=== PATIENT | male | born 1950 | race Caucasian/White ===

== ENCOUNTER → 2017-11-26 | Day surgery (SDC) | payer MEDICARE ==
[2017-11-23 15:05] VITALS: BMI 27.6
[~2017-11-26] MED LIST: LACTATED RINGERS 1,000 ML IV SCH; LIDOCAINE 1% 20 ML VIAL (10MG/ML) FOR IV START INTRADERMA ONE; PROPOFOL 10 MG/ML 20 ML VIAL IV ONE
[2017-11-26 09:25] VITALS: RESP 16; TEMP 98.6
--- NOTE | 2017-11-26 10:35 | P.GSHP ---
History of Present Illness H&P Date: 11/26/17 Chief Complaint: Colonoscopy This is a 67-year-old male who presents today for colonoscopy. Patient has history of colon polyps. His last colonoscopy was over 10 years ago. Past Medical History Past Medical History: CVA/TIA, Hyperlipidemia Additional Past Medical History / Comment(s): TIA "years ago", hx tachycardia, History of Any Multi-Drug Resistant Organisms: None Reported Past Surgical History: Appendectomy, Cardiac Ablation Past Anesthesia/Blood Transfusion Reactions: No Reported Reaction Smoking Status: Never smoker - Past Family History Mother Family Medical History: No Reported History Medications and Allergies Home Medications Medication Instructions Recorded Confirmed Type Aspirin EC [Ecotrin] 325 mg PO DAILY 11/23/17 11/26/17 History Cholecalciferol [Vitamin D3] 2,000 unit PO DAILY 11/23/17 11/26/17 History Hydrochlorothiazide [Hydrodiuril] 25 mg PO DAILY 11/23/17 11/26/17 History Lisinopril [Zestril] 20 mg PO DAILY 11/23/17 11/26/17 History Simvastatin [Zocor] 20 mg PO HS 11/23/17 11/26/17 History Allergies Allergy/AdvReac Type Severity Reaction Status Date / Time meperidine [From Demerol] Allergy dizzy,swell Verified 11/26/17 09:08 ing shellfish derived [Shellfish] Allergy Swelling Verified 11/26/17 09:08 iodine Allergy Unknown Uncoded 11/26/17 09:08 Surgical - Exam Vital Signs Temp Pulse Resp BP Pulse Ox 98.6 F 80 16 169/90 97 11/26/17 09:20 11/26/17 09:20 11/26/17 09:20 11/26/17 09:20 11/26/17 09:20 - General well developed, no distress - Eyes PERRL - ENT normal pinna - Neck no masses - Respiratory normal expansion - Cardiovascular Rhythm: regular - Abdomen Abdomen: soft, non tender Assessment and Plan Assessment: History: Polyps. We'll perform screening colonoscopy.
[2017-11-26 11:07] VITALS: BP 166/96; PULSE 64
--- NOTE | 2017-11-26 15:01 | P.OP ---
Date of Procedure: 11/26/17 Preoperative Diagnosis: History of colon polyps Postoperative Diagnosis: Normal colon Procedure(s) Performed: Colonoscopy Anesthesia: NATHANIEL Surgeon: Danilo Landry Pathology: none sent Condition: stable Disposition: PACU Description of Procedure: PROCEDURE: The patient was placed on the endoscopy table in the lateral position. Digital rectal examination was performed which revealed no abnormalities. The prostate was symmetrical without nodules. Flexible colonoscope was then placed in the patient's anus and passed throughout the entire colon. The ileocecal valve was visualized. The cecum, ascending, transverse, descending and sigmoid colon were normal. The rectum was normal as well. There were no masses, polyps or diverticula noted in the entire colon. SUMMARY OF FINDINGS: Normal colonoscopy.
== END | disposition home or self-care (01) ==
LOC: ORWHC2ENDO 08:06
PROVIDERS: ATTEND Surgery
DX: Z12.11 Encounter for screening for malignant neoplasm of colon (principal); E78.5 Hyperlipidemia, unspecified; Z86.010 Personal history of colon polyps; Z79.82 Long term (current) use of aspirin; Z86.73 Personal history of transient ischemic attack (TIA), and cerebral infarction without residual deficits; Z79.899 Other long term (current) drug therapy; Z88.5 Allergy status to narcotic agent; Z91.013 Allergy to seafood; Z91.048 Other nonmedicinal substance allergy status; I10 Essential (primary) hypertension
CPT/HCPCS: J2704; G0105

== ENCOUNTER 2018-01-21 21:54 | Emergency (ER) | payer MEDICARE ==
[2018-01-21 22:00] VITALS: TEMP 97.8
[2018-01-21] MEDS ORDERED: SODIUM CHLORIDE 0.9% 500 ML 500 ML IV STA (22:06)
--- NOTE | 2018-01-21 22:11 | ED ---
General Adult HPI - General Chief complaint: Shortness of Breath Stated complaint: Chest Pain/SOB Source: patient Mode of arrival: EMS Limitations: no limitations - History of Present Illness Initial comments: Dictation was produced using [employer] dictation software. please excuse any grammatical, word or spelling errors. Chief Complaint: 67-year-old male past medical history of CVA, dyslipidemia, arrhythmia status post ablation presents with palpitations. History of Present Illness: Patient is 67-year-old male with multiple comorbidities presents with palpitations. Patient states he was getting ready for bed when he had 2 episodes of palpitations. Patient states he attempted to stand up from the symptoms. Denies any passing out or falling. Patient denies having any history of this the past. He had cardiac ablation several years ago that was performed by one of our local service station manager. Patient feeling asymptomatic at this time. He did report having 5 beers today. The ROS documented in this emergency department record has been reviewed and confirmed by me. Those systems with pertinent positive or negative responses have been documented in the HPI. All other systems are other negative and/or noncontributory. - Related Data Home Medications Medication Instructions Recorded Confirmed Aspirin EC [Ecotrin] 325 mg PO DAILY 11/23/17 01/21/18 Cholecalciferol [Vitamin D3] 2,000 unit PO DAILY 11/23/17 01/21/18 Hydrochlorothiazide [Hydrodiuril] 25 mg PO DAILY 11/23/17 01/21/18 Lisinopril [Zestril] 20 mg PO DAILY 11/23/17 01/21/18 Simvastatin [Zocor] 20 mg PO HS 11/23/17 01/21/18 Allergies Allergy/AdvReac Type Severity Reaction Status Date / Time meperidine [From Demerol] Allergy dizzy,swell Verified 01/21/18 22:16 ing shellfish derived [Shellfish] Allergy Swelling Verified 01/21/18 22:16 iodine Allergy Swelling Uncoded 01/21/18 22:16 Review of Systems ROS Statement: Those systems with pertinent positive or pertinent negative responses have been documented in the HPI. ROS Other: All systems not noted in ROS Statement are negative. Past Medical History Past Medical History: CVA/TIA, Hyperlipidemia Additional Past Medical History / Comment(s): TIA "years ago", hx tachycardia, History of Any Multi-Drug Resistant Organisms: None Reported Past Surgical History: Appendectomy, Cardiac Ablation Past Anesthesia/Blood Transfusion Reactions: No Reported Reaction Past Psychological History: No Psychological Hx Reported Smoking Status: Never smoker Past Alcohol Use History: Occasional Past Drug Use History: None Reported - Past Family History Mother Family Medical History: No Reported History General Exam - General Exam Comments Initial Comments: PHYSICAL EXAM: General Impression: Alert and oriented x3, not in acute distress, smells of [place] HEENT: Normocephalic atraumatic, extra-ocular movements intact, pupils equal and reactive to light bilaterally, mucous membranes moist. Cardiovascular: irregular Chest: Lungs clear to auscultation bilaterally, no rhonchi, no wheeze, no rales Abdomen: Bowel sounds present, abdomen soft, non-tender, non-distended, no organomegaly Musculoskeletal: Pulses present and equal in all extremities, no peripheral edema Motor: Power 5/5 bilaterally, no focal deficits noted Neurological: CN II-XII grossly intact, no focal motor or sensory deficits noted Skin: Intact with no visualized rashes Psych: Normal affect and mood Limitations: no limitations Course Vital Signs 01/21/18 01/21/18 21:55 22:00 Temperature 97.8 F Pulse Rate 78 Respiratory 18 18 Rate Blood Pressure 140/96 O2 Sat by Pulse 98 Oximetry Medical Decision Making - Medical Decision Making ED course: 67-year-old male with chief complaint of palpitations. Vital signs upon arrival are within acceptable limits.Laboratory evaluation obtained. CBC, coag panel, metabolic panel is unremarkable. Serum alcohol is 90. Patient was on the aircraft cleaner without any events noted. Patient feeling asymptomatic at this time. He does have good outpatient follow-up with cardiology. He does have an echocardiogram scheduled with his service station manager. Patient has any congestive heart failure. Patient is motivated to be discharge. Discussed patient that if he has repeat episode, or syncope to come back to the emergency department. Patient is understandable and agreeable to this plan. Patient told that possible that he did have a ventricular dysrhythmia however more likely that patient was having occasional PVCs. EKG Interpretation: A 12 lead EKG was obtained. It was interpreted by myself and attending physician. There is a P wave before every QRS complex. Rate is 71. Rhythm is sinus rhythm with PVCs, OK interval 200, QS 90, QTC 417. QT is not prolonged. No ST segment depression or elevation. Overall, this EKG is unremarkable - Lab Data Result diagrams: 01/21/18 22:03 01/21/18 22:03 Lab Results 01/21/18 01/21/18 01/21/18 Range/Units 22:03 22:03 22:03 WBC 7.7 (3.8-10.6) k/uL RBC 4.23 L (4.30-5.90) m/uL Hgb 14.2 (13.0-17.5) gm/dL Hct 40.1 (39.0-53.0) % MCV 94.9 (80.0-100.0) fL MCH 33.5 (25.0-35.0) pg MCHC 35.3 (31.0-37.0) g/dL RDW 12.1 (11.5-15.5) % Plt Count 249 (150-450) k/uL Neutrophils % 39 % Lymphocytes % 48 % Monocytes % 6 % Eosinophils % 3 % Basophils % 1 % Neutrophils # 3.0 (1.3-7.7) k/uL Lymphocytes # 3.7 (1.0-4.8) k/uL Monocytes # 0.5 (0-1.0) k/uL Eosinophils # 0.2 (0-0.7) k/uL Basophils # 0.1 (0-0.2) k/uL PT (9.0-12.0) sec INR (<1.2) APTT (22.0-30.0) sec Sodium 135 L (137-145) mmol/L Potassium 3.8 (3.5-5.1) mmol/L Chloride 104 (98-107) mmol/L Carbon Dioxide 20 L (22-30) mmol/L Anion Gap 11 mmol/L BUN 11 (9-20) mg/dL Creatinine 0.83 (0.66-1.25) mg/dL Est GFR (CKD-EPI)AfAm >90 (>60 ml/min/1.73 sqM) Est GFR (CKD-EPI)NonAf >90 (>60 ml/min/1.73 sqM) Glucose 97 (74-99) mg/dL Calcium 9.3 (8.4-10.2) mg/dL Magnesium 2.0 (1.6-2.3) mg/dL Total Bilirubin 0.6 (0.2-1.3) mg/dL AST 36 (17-59) U/L ALT 38 (21-72) U/L Alkaline Phosphatase 79 (38-126) U/L Total Creatine Kinase 130 (55-170) U/L CK-MB (CK-2) 1.8 (0.0-2.4) ng/mL CK-MB (CK-2) Rel Index 1.4 Troponin I <0.012 (0.000-0.034) ng/mL Total Protein 6.9 (6.3-8.2) g/dL Albumin 4.1 (3.5-5.0) g/dL Serum Alcohol 90 mg/dL 01/21/18 Range/Units 22:03 WBC (3.8-10.6) k/uL RBC (4.30-5.90) m/uL Hgb (13.0-17.5) gm/dL Hct (39.0-53.0) % MCV (80.0-100.0) fL MCH (25.0-35.0) pg MCHC (31.0-37.0) g/dL RDW (11.5-15.5) % Plt Count (150-450) k/uL Neutrophils % % Lymphocytes % % Monocytes % % Eosinophils % % Basophils % % Neutrophils # (1.3-7.7) k/uL Lymphocytes # (1.0-4.8) k/uL Monocytes # (0-1.0) k/uL Eosinophils # (0-0.7) k/uL Basophils # (0-0.2) k/uL PT 10.9 (9.0-12.0) sec INR 1.1 (<1.2) APTT 24.6 (22.0-30.0) sec Sodium (137-145) mmol/L Potassium (3.5-5.1) mmol/L Chloride (98-107) mmol/L Carbon Dioxide (22-30) mmol/L Anion Gap mmol/L BUN (9-20) mg/dL Creatinine (0.66-1.25) mg/dL Est GFR (CKD-EPI)AfAm (>60 ml/min/1.73 sqM) Est GFR (CKD-EPI)NonAf (>60 ml/min/1.73 sqM) Glucose (74-99) mg/dL Calcium (8.4-10.2) mg/dL Magnesium (1.6-2.3) mg/dL Total Bilirubin (0.2-1.3) mg/dL AST (17-59) U/L ALT (21-72) U/L Alkaline Phosphatase (38-126) U/L Total Creatine Kinase (55-170) U/L CK-MB (CK-2) (0.0-2.4) ng/mL CK-MB (CK-2) Rel Index Troponin I (0.000-0.034) ng/mL Total Protein (6.3-8.2) g/dL Albumin (3.5-5.0) g/dL Serum Alcohol mg/dL Disposition Clinical Impression: Heart palpitations Disposition: HOME SELF-CARE Instructions: Heart Palpitations (DC) Is patient prescribed a controlled substance at d/c from ED?: No Referrals: Todd Figueroa MD [Primary Care Provider] - 1-2 days Maggy Dial MD [STAFF PHYSICIAN] - 1-2 days Time of Disposition: 23:04
[2018-01-21 22:17] LABS: Basophils # (A) 0.1 k/uL (0-0.2); Basophils % (A) 1 %; Eosinophils # (A) 0.2 k/uL (0-0.7); Eosinophils % (A) 3 %; HCT 40.1 % (39.0-53.0); HGB 14.2 gm/dL (13.0-17.5); Lymphocytes # (A) 3.7 k/uL (1.0-4.8); Lymphocytes % (A) 48 %; MCH 33.5 pg (25.0-35.0); MCHC 35.3 g/dL (31.0-37.0); MCV 94.9 fL (80.0-100.0); Monocytes # (A) 0.5 k/uL (0-1.0); Monocytes % (A) 6 %; Neutrophils % (A) 39 %; Platelet Count 249 k/uL (150-450); RBC 4.23 m/uL (4.30-5.90); RDW 12.1 % (11.5-15.5); WBC 7.7 k/uL (3.8-10.6)
[2018-01-21 22:25] LABS: INR 1.1 (<1.2); Partial Thromboplastin Time 24.6 sec (22.0-30.0); Prothrombin Time 10.9 sec (9.0-12.0)
[2018-01-21 22:36] LABS: ALT 38 U/L (21-72); AST 36 U/L (17-59); Albumin 4.1 g/dL (3.5-5.0); Alkaline Phosphatase 79 U/L (38-126); Anion Gap 11 mmol/L; Blood Urea Nitrogen 11 mg/dL (9-20); Calcium 9.3 mg/dL (8.4-10.2); Carbon Dioxide 20 mmol/L (22-30); Chloride 104 mmol/L (98-107); Glucose 97 mg/dL (74-99); Potassium 3.8 mmol/L (3.5-5.1); Sodium 135 mmol/L (137-145); Total Bilirubin 0.6 mg/dL (0.2-1.3); Total Protein 6.9 g/dL (6.3-8.2)
[2018-01-21 22:41] LABS: Alcohol 90 mg/dL
[2018-01-21 22:46] LABS: Creatine Kinase 130 U/L (55-170)
--- NOTE | 2018-01-21 22:52 | XR ---
EXAMINATION TYPE: XR chest 2V DATE OF EXAM: 01/21/2018 COMPARISON: NONE HISTORY: Short of breath TECHNIQUE: Frontal and lateral views of the chest are obtained. FINDINGS: There is no heart failure nor confluent pneumonic infiltrate. Costophrenic angles are alecia r. There are chest leads. There is spurring in the thoracic spine. Bony thorax is intact. IMPRESSION: No active cardiopulmonary disease. Normal heart.
[2018-01-21 22:59] LABS: Creatine Kinase MB 1.8 ng/mL (0.0-2.4); Troponin I <0.012 ng/mL (0.000-0.034)
[2018-01-21 23:26] VITALS: BP 143/95; PULSE 60; RESP 16
== END 2018-01-21 23:27 | disposition home or self-care (01) ==
LOC: EC 21:54
DX: R00.2 Palpitations (principal); R06.02 Shortness of breath; R07.9 Chest pain, unspecified; E78.5 Hyperlipidemia, unspecified; Z79.82 Long term (current) use of aspirin; Z79.899 Other long term (current) drug therapy; Z86.73 Personal history of transient ischemic attack (TIA), and cerebral infarction without residual deficits; Z98.890 Other specified postprocedural states; Z88.5 Allergy status to narcotic agent; Z91.013 Allergy to seafood; Z91.048 Other nonmedicinal substance allergy status
CPT/HCPCS: 36415; 93005; 80053; 82550; 82553; 83735; 84443; 84484; 85025; 85610; 85730; 71046; 99285; G0480; 80320

== ENCOUNTER 2019-03-30 22:07 | Emergency (ER) | payer MEDICARE ==
[2019-03-30 22:17] VITALS: RESP 20; TEMP 97.4
--- NOTE | 2019-03-30 23:04 | ED ---
General Adult HPI - General Chief complaint: Shortness of Breath Stated complaint: Chest pain Time Seen by Provider: 03/30/19 22:12 Source: patient, EMS Mode of arrival: EMS Limitations: no limitations - History of Present Illness Initial comments: Dictation was produced using [email or web address] dictation software. please excuse any grammatical, word or spelling errors. Chief Complaint: 68-year-old male presents with chest pain in episode of shor tness of breath. History of Present Illness: 68-year-old male states that he was in bed today when he be had an acute episode of respiratory distress. He also reports he had some strange chest pain radiating to the left neck. Urinalysis complains of throat pain. Patient states his symptoms began while getting ready for bed. He states symptoms began acutely. States that he had trouble breathing. [place] slightly anxious at that time decided to put on some regular clothes for feelings of reassurance. Patient states that he did feel sensation of his throat closing. Since pain emergency Department states that his symptoms are better. Whenever he talks his symptoms are worse. The ROS documented in this emergency department record has been reviewed and confirmed by me. Those systems with pertinent positive or negative responses have been documented in the HPI. All other systems are other negative and/or noncontributory. PHYSICAL EXAM: General Impression: Alert and oriented x3, not in acute distress HEENT: Normocephalic atraumatic, extra-ocular movements intact, pupils equal and reactive to light bilaterally, mucous membranes moist. Cardiovascular: Heart regular rate and rhythm, S1&S2 audible, no murmurs, rubs or gallops Chest: Lungs clear to auscultation bilaterally, no rhonchi, no wheeze, no rales Abdomen: Bowel sounds present, abdomen soft, non-tender, non-distended, no organomegaly Musculoskeletal: Pulses present and equal in all extremities, no peripheral edema Motor: no focal deficits noted Neurological: CN II-XII grossly intact, no focal motor or sensory deficits noted Skin: Intact with no visualized rashes Psych: Normal affect and mood ED course: 68-year-old male presents with chief complaint of acute respiratory distress. He did feel like his though his throat was hurting. Signs upon arrival are within acceptable limits. Patient not showing any signs of respiratory distress. Is not drooling. He is well-appearing comfortable at this time.Laboratory evaluation obtained. CBC, coag panel, metabolic panel is unremarkable. Group A strep is negative. Chest x-ray and soft tissue neck x- rays negative. The emergency department for couple hours with no symptoms. He is well-appearing. Discussed results with patient. Patient reports that he's b een more stressed out recently due to the of her daughter and him and his raising young children. Patient is advised to follow-up with primary care physician. There likely is a component of anxiety. Return parameters discussed. Patient clear for discharge. All questions answered. EKG interpretation: Ventricular rate every 72, sinus rhythm,. Interval to 18, care is 102, QTc 433. No [place] prolongation, no QTC prolongation, no ST or T-wave changes noted. EKG compared to her second 2017 showing no changes. Overall, this EKG is unremarkable - Related Data Home Medications Medication Instructions Recorded Confirmed Aspirin EC [Ecotrin] 325 mg PO DAILY 11/23/17 01/21/18 Cholecalciferol [Vitamin D3] 2,000 unit PO DAILY 11/23/17 01/21/18 Hydrochlorothiazide [Hydrodiuril] 25 mg PO DAILY 11/23/17 01/21/18 Lisinopril [Zestril] 20 mg PO DAILY 11/23/17 01/21/18 Simvastatin [Zocor] 20 mg PO HS 11/23/17 01/21/18 Allergies Allergy/AdvReac Type Severity Reaction Status Date / Time meperidine [From Demerol] Allergy dizzy,swell Verified 01/21/18 22:16 ing shellfish derived [Shellfish] Allergy Swelling Verified 01/21/18 22:16 iodine Allergy Swelling Uncoded 01/21/18 22:16 Review of Systems ROS Statement: Those systems with pertinent positive or pertinent negative responses have been documented in the HPI. ROS Other: All systems not noted in ROS Statement are negative. Past Medical History Past Medical History: CVA/TIA, Hyperlipidemia Additional Past Medical History / Comment(s): TIA "years ago", hx tachycardia, History of Any Multi-Drug Resistant Organisms: None Reported Past Surgical History: Appendectomy, Cardiac Ablation Past Anesthesia/Blood Transfusion Reactions: No Reported Reaction Past Psychological History: No Psychological Hx Reported Smoking Status: Never smoker Past Alcohol Use History: Occasional Past Drug Use History: None Reported - Past Family History Mother Family Medical History: No Reported History General Exam Limitations: no limitations Course Vital Signs 03/30/19 03/30/19 03/30/19 22:08 22:48 23:07 Temperature 97.4 F L Pulse Rate 75 65 Respiratory 20 20 20 Rate Blood Pressure 154/117 141/89 O2 Sat by Pulse 97 97 Oximetry 03/30/19 23:19 Temperature Pulse Rate 70 Respiratory 20 Rate Blood Pressure 140/97 O2 Sat by Pulse 97 Oximetry Medical Decision Making - Lab Data Result diagrams: 03/30/19 22:11 03/30/19 22:11 Lab Results 03/30/19 03/30/19 03/30/19 Range/Units 22:11 22:11 22:11 WBC 8.4 (3.8-10.6) k/uL RBC 4.50 (4.30-5.90) m/uL Hgb 14.8 (13.0-17.5) gm/dL Hct 42.5 (39.0-53.0) % MCV 94.3 (80.0-100.0) fL MCH 32.9 (25.0-35.0) pg MCHC 34.9 (31.0-37.0) g/dL RDW 11.3 L (11.5-15.5) % Plt Count 237 (150-450) k/uL Neutrophils % 39 % Lymphocytes % 48 % Monocytes % 6 % Eosinophils % 2 % Basophils % 1 % Neutrophils # 3.3 (1.3-7.7) k/uL Lymphocytes # 4.0 (1.0-4.8) k/uL Monocytes # 0.5 (0-1.0) k/uL Eosinophils # 0.2 (0-0.7) k/uL Basophils # 0.1 (0-0.2) k/uL PT 11.0 (9.0-12.0) sec INR 1.0 (<1.2) APTT 26.8 (22.0-30.0) sec Sodium 134 L (137-145) mmol/L Potassium 4.0 (3.5-5.1) mmol/L Chloride 100 (98-107) mmol/L Carbon Dioxide 21 L (22-30) mmol/L Anion Gap 13 mmol/L BUN 12 (9-20) mg/dL Creatinine 0.79 (0.66-1.25) mg/dL Est GFR (CKD-EPI)AfAm >90 (>60 ml/min/1.73 sqM) Est GFR (CKD-EPI)NonAf >90 (>60 ml/min/1.73 sqM) Glucose 93 (74-99) mg/dL Calcium 9.1 (8.4-10.2) mg/dL Magnesium 2.0 (1.6-2.3) mg/dL Total Bilirubin 0.6 (0.2-1.3) mg/dL AST 43 (17-59) U/L ALT 32 (4-49) U/L Alkaline Phosphatase 87 (38-126) U/L Troponin I (0.000-0.034) ng/mL Total Protein 7.4 (6.3-8.2) g/dL Albumin 4.3 (3.5-5.0) g/dL Group A Strep Rapid (Negative) 03/30/19 03/30/19 Range/Units 22:11 23:16 WBC (3.8-10.6) k/uL RBC (4.30-5.90) m/uL Hgb (13.0-17.5) gm/dL Hct (39.0-53.0) % MCV (80.0-100.0) fL MCH (25.0-35.0) pg MCHC (31.0-37.0) g/dL RDW (11.5-15.5) % Plt Count (150-450) k/uL Neutrophils % % Lymphocytes % % Monocytes % % Eosinophils % % Basophils % % Neutrophils # (1.3-7.7) k/uL Lymphocytes # (1.0-4.8) k/uL Monocytes # (0-1.0) k/uL Eosinophils # (0-0.7) k/uL Basophils # (0-0.2) k/uL PT (9.0-12.0) sec INR (<1.2) APTT (22.0-30.0) sec Sodium (137-145) mmol/L Potassium (3.5-5.1) mmol/L Chloride (98-107) mmol/L Carbon Dioxide (22-30) mmol/L Anion Gap mmol/L BUN (9-20) mg/dL Creatinine (0.66-1.25) mg/dL Est GFR (CKD-EPI)AfAm (>60 ml/min/1.73 sqM) Est GFR (CKD-EPI)NonAf (>60 ml/min/1.73 sqM) Glucose (74-99) mg/dL Calcium (8.4-10.2) mg/dL Magnesium (1.6-2.3) mg/dL Total Bilirubin (0.2-1.3) mg/dL AST (17-59) U/L ALT (4-49) U/L Alkaline Phosphatase (38-126) U/L Troponin I <0.012 (0.000-0.034) ng/mL Total Protein (6.3-8.2) g/dL Albumin (3.5-5.0) g/dL Group A Strep Rapid Negative (Negative) Disposition Clinical Impression: Dyspnea Disposition: HOME SELF-CARE Condition: Good Instructions (If sedation given, give patient instructions): Pharyngitis (ED) Is patient prescribed a controlled substance at d/c from ED?: No Referrals: Todd Figueroa MD [Primary Care Provider] - 1-2 days Time of Disposition: 00:00
[2019-03-30 23:05] LABS: Basophils # (A) 0.1 k/uL (0-0.2); Basophils % (A) 1 %; Eosinophils # (A) 0.2 k/uL (0-0.7); Eosinophils % (A) 2 %; HCT 42.5 % (39.0-53.0); HGB 14.8 gm/dL (13.0-17.5); Lymphocytes % (A) 48 %; MCH 32.9 pg (25.0-35.0); MCHC 34.9 g/dL (31.0-37.0); MCV 94.3 fL (80.0-100.0); Mean Platelet Volume 7.9; Monocytes # (A) 0.5 k/uL (0-1.0); Monocytes % (A) 6 %; Neutrophils # (A) 3.3 k/uL (1.3-7.7); Neutrophils % (A) 39 %; Platelet Count 237 k/uL (150-450); RDW 11.3 % (11.5-15.5); WBC 8.4 k/uL (3.8-10.6)
[2019-03-30 23:15] LABS: ALT 32 U/L (4-49); AST 43 U/L (17-59); African American GFR (CKD) >90 (>60 ml/min/1.73 sqM); Albumin 4.3 g/dL (3.5-5.0); Alkaline Phosphatase 87 U/L (38-126); Anion Gap 13 mmol/L; Blood Urea Nitrogen 12 mg/dL (9-20); Calcium 9.1 mg/dL (8.4-10.2); Carbon Dioxide 21 mmol/L (22-30); Chloride 100 mmol/L (98-107); Glucose 93 mg/dL (74-99); Non-African American GFR(CKD) >90 (>60 ml/min/1.73 sqM); Sodium 134 mmol/L (137-145); Total Bilirubin 0.6 mg/dL (0.2-1.3); Total Protein 7.4 g/dL (6.3-8.2)
[2019-03-30 23:20] VITALS: BP 140/97; PULSE 70
--- NOTE | 2019-03-30 23:32 | XR ---
EXAMINATION TYPE: XR chest 2V DATE OF EXAM: 03/30/2019 COMPARISON: January 21, 2018 HISTORY: Chest pain TECHNIQUE: FINDINGS: There is no heart failure nor confluent pneumonic infiltrate. Heart size is normal. There a re chest leads. Costophrenic angles are clear. Bony thorax appears intact. IMPRESSION: No active cardiopulmonary disease. Normal heart. No change.
--- NOTE | 2019-03-30 23:33 | XR ---
EXAMINATION TYPE: XR soft tissue neck DATE OF EXAM: 03/30/2019 COMPARISON: NONE HISTORY: Pain TECHNIQUE: 2 views FINDINGS: Epiglottis is normal. Subglottic trachea appears normal. Tonsils and adenoids appear normal . IMPRESSION: Normal cervical soft tissue exam.
[2019-03-30 23:49] LABS: Partial Thromboplastin Time 26.8 sec (22.0-30.0)
== END 2019-03-31 00:32 | disposition home or self-care (01) ==
LOC: EC 22:07
DX: R06.02 Shortness of breath (principal); R06.03 Acute respiratory distress; R07.0 Pain in throat; R07.9 Chest pain, unspecified; M54.2 Cervicalgia; E78.5 Hyperlipidemia, unspecified; Z88.5 Allergy status to narcotic agent; Z91.013 Allergy to seafood; Z91.048 Other nonmedicinal substance allergy status; Z79.82 Long term (current) use of aspirin; Z79.899 Other long term (current) drug therapy; Z63.4 Disappearance and death of family member; Z86.73 Personal history of transient ischemic attack (TIA), and cerebral infarction without residual deficits; Z98.890 Other specified postprocedural states
CPT/HCPCS: 36415; 70360; 71046; 80053; 83735; 84484; 85025; 85610; 85730; 87081; 87430; 93005; 99285

== ENCOUNTER 2022-10-23 23:50 | Emergency (ER) | payer MEDICARE ==
[2022-10-23 23:54] VITALS: RESP 18
[2022-10-24] MEDS ORDERED: LIDOCAINE 1% INJ 10MG/ML (20 ML MDV) SQ ONE (01:38)
[2022-10-24] MEDS ORDERED: DIPH,PERTUS(ACELL)TETVAC-LF 0.5 ML VIAL IM ONE (01:40)
[2022-10-24] MEDS ORDERED: MORPHINE SULFATE 4 MG/ML SYRINGE IVP STA (02:51)
[2022-10-24] MEDS ORDERED: FAMOTIDINE 20 MG/2 ML VIAL IV STA (03:09)
[2022-10-24] MEDS ORDERED: diphenhydrAMINE 50 MG/ML 1 ML VIAL IVP STA (03:10)
[2022-10-24] MEDS ORDERED: methylPREDNISolone SOD SUCCI 125 MG/2 ML VIAL IM ONE (03:10)
[2022-10-24] MEDS ORDERED: methylPREDNISolone SOD SUCCI 125 MG/2 ML VIAL IV STA (03:13)
--- NOTE | 2022-10-24 03:45 | ED ---
Fall HPI - General Chief Complaint: Fall Stated Complaint: Fall Time Seen by Provider: 10/24/22 01:28 Source: patient, EMS, RN notes reviewed Mode of arrival: EMS - History of Present Illness Initial Comments: 72-year-old male with past medical history significant for atrial fibrillation presents the emergency department via EMS with chief complaint of fall. Patient reports that he was walking up the steps when he lost his footing and fell forward. He is complaining of right hand laceration. He is unsure if that he hit his head. Denies loss of consciousness. He does take Xarelto for anticoagulation. Denies any dizziness, lightheadedness, vision changes, vision loss, nausea, vomiting, headache. - Related Data Home Medications Medication Instructions Recorded Confirmed Aspirin EC [Ecotrin] 325 mg PO DAILY 11/23/17 01/21/18 Cholecalciferol [Vitamin D3] 2,000 unit PO DAILY 11/23/17 01/21/18 Simvastatin [Zocor] 20 mg PO HS 11/23/17 01/21/18 hydroCHLOROthiazide [Hydrodiuril] 25 mg PO DAILY 11/23/17 01/21/18 lisinopriL [Zestril] 20 mg PO DAILY 11/23/17 01/21/18 Allergies Allergy/AdvReac Type Severity Reaction Status Date / Time meperidine [From Demerol] Allergy dizzy,swell Verified 01/21/18 22:16 ing shellfish derived [Shellfish] Allergy Swelling Verified 01/21/18 22:16 iodine Allergy Swelling Uncoded 01/21/18 22:16 Review of Systems ROS Statement: Those systems with pertinent positive or pertinent negative responses have been documented in the HPI. ROS Other: All systems not noted in ROS Statement are negative. Past Medical History Past Medical History: CVA/TIA, Hyperlipidemia Additional Past Medical History / Comment(s): TIA "years ago", hx tachycardia, History of Any Multi-Drug Resistant Organisms: None Reported Past Surgical History: Appendectomy, Cardiac Ablation Past Anesthesia/Blood Transfusion Reactions: No Reported Reaction Past Psychological History: No Psychological Hx Reported Smoking Status: Never smoker Past Alcohol Use History: Occasional Past Drug Use History: None Reported - Past Family History Mother Family Medical History: No Reported History General Exam - General Exam Comments Initial Comments: General: Alert, in no acute distress Head: atraumatic normocephalic. Eyes PERRL, EOMI intact, mucous membranes moist Respiratory: Lungs clear to auscultation bilaterally Cardiovascular: Heart rate regular rate and rhythm Abdominal: Soft without guarding or rebound Extremities: Normal inspection with full range of motion and normal capillary refill, right home with 4 cm laceration Neuroogic: alert and oriented 3, CN II-XII intact, able to ambulate with steady gait Skin: warm dry and intact with normal color Course Vital Signs 10/23/22 10/24/22 10/24/22 23:50 02:06 03:02 Temperature 98.3 F Pulse Rate 68 71 73 Respiratory 18 18 18 Rate Blood Pressure 131/87 142/92 133/84 O2 Sat by Pulse 96 95 95 Oximetry 10/24/22 04:46 Temperature 98.2 F Pulse Rate 84 Respiratory 18 Rate Blood Pressure 138/74 O2 Sat by Pulse 99 Oximetry Procedures - Laceration Laceration #1 Indication: laceration Site: other Size (cm): 4 Description: linear Depth: simple, single layer Anesthetic Used: lidocaine 1% Anesthesia Technique: local infiltration Amount (mls): 10 Pre-repair: wound explored, irrigated extensively Type of Sutures: nylon Size of Sutures: 5-0 Number of Sutures: 10 Technique: simple, interrupted Complications: pain, bleeding, nerve injury, allergic reaction Patient Tolerated Procedure: well, no complications Additional Comments: Distal neurovascularly intact status post suture placement Medical Decision Making - Medical Decision Making Was pt. sent in by a medical professional or institution (Dr. PA, ENGINE TURNER, urgent care, hospital, or usp...) When possible be specific @ -[No] Did you speak to anyone other than the patient for history (EMS, parent, family, police, friend...)? What history was obtained from this source @ -EMS, Did you review nursing and triage notes (agree or disagree)? Why? @ -[I reviewed and agree with nursing and triage notes] Were old charts reviewed (outside hosp., previous admission, EMS record, old EKG, old radiological studies, urgent care reports/EKG's, usp records)? Report findings @ -[No old charts were reviewed] Differential Diagnosis (chest pain, altered mental status, abdominal pain women, abdominal pain men, vaginal bleeding, weakness, fever, dyspnea, syncope, headache, dizziness, GI bleed, back pain, seizure, CVA, palpatations, mental health, musculoskeletal)? @ -[not applicable] EKG interpreted by me (3pts min.). @ -[As above] X-rays interpreted by me (1pt min.). @ -[None done] CT interpreted by me (1pt min.). @ -[None done] U/S interpreted by me (1pt. min.). @ -[None done] What testing was considered but not performed or refused? (CT, X-rays, U/S, labs)? Why? @ -[None] What meds were considered but not given or refused? Why? @ -[None] Did you discuss the management of the patient with other professionals (professionals i.e. , PA, ENGINE TURNER, lab, RT, psych nurse, psych social worker, dx board operator, teacher, credit compliance officer, lining caser)? Give summary @ -[No] Was smoking cessation discussed for >3mins.? @ -[No] Was critical care preformed (if so, how long)? @ -[No] Were there social determinants of health that impacted care today? How? (Homelessness, low income, unemployed, alcoholism, drug addiction, transportation, low edu. Level, literacy, decrease access to med. care, penitentiary, rehab)? @ -[No] Was there de-escalation of care discussed even if they declined (Discuss DNR or withdrawal of care, Hospice)? DNR status @ -[No] What co-morbidities impacted this encounter? (DM, HTN, Smoking, COPD, CAD, Cancer, CVA, ARF, Chemo, Hep., AIDS, mental health diagnosis, sleep apnea, morbid obesity)? @ -[None] Was patient admitted / discharged? Hospital course, mention meds given and route, prescriptions, significant lab abnormalities, going to OR and other pertinent info. @ -This is a pleasant 72-year-old male who presents the emergency department with a chief complaint of fall. Patient had a thorough history and physical exam performed on the ED. Patient arrived in a c-collar. There are no focal deficits noted to exam. Patient has 4 cm laceration to right palm with full range of motion. It is painful 2+ radial pulses. Patient was updated on his tetanus vaccine and had 10 sutures placed while in the emergency department to which she tolerated well. He was given morphine, Benadryl, Pepcid, Solu- Medrol as morphine case, localized-reaction to left upper arm. Patient will be signed out to Dr. Nagel pending x-ray and CT results results. I interpreted the following: CT results revealed no intracranial process or evidence of cervical spine fracture. I discussed the results in detail with the patient and patient's who verbalized understanding all questions were addressed. Return precautions were discussed at length. Patient will be discharged home in stable condition. Case discussed with Dr. Nagel [facility] who agrees with plan of care Undiagnosed new problem with uncertain prognosis? @ -[No] Drug Therapy requiring intensive monitoring for toxicity (Heparin, Nitro, Insulin, Cardizem)? @ -[No] Were any procedures done? @ -Yes see stitches note above Diagnosis/symptom? @ -Fall - Right Palm Laceration Acute, or Chronic, or Acute on Chronic? @ -Acute Uncomplicated (without systemic symptoms) or Complicated (systemic symptoms)? @ -Uncomplicated Side effects of treatment? @ -[No] Exacerbation, Progression, or Severe Exacerbation? @ -[No] Poses a threat to life or bodily function? How? (Chest pain, [place], [place], pneumonia, PE, COPD, DKA, ARF, appy, cholecystitis, CVA, Diverticulitis, Homicidal, Suicidal, threat to staff... and all critical care pts) @ -Low Likelihood Disposition Clinical Impression: Fall, Laceration Disposition: HOME SELF-CARE Condition: Stable Instructions (If sedation given, give patient instructions): Care For Your Stitches (DC), Laceration (DC), Fall Prevention (ED) Additional Instructions: Please return to the nearest emergency department if symptoms worsen or persist Is patient prescribed a controlled substance at d/c from ED?: No Referrals: Todd Figueroa MD [Primary Care Provider] - 1-2 days Time of Disposition: 03:48
--- NOTE | 2022-10-24 04:26 | CT ---
EXAMINATION TYPE: CT brain deuqan tapia con DATE OF EXAM: 10/24/2022 COMPARISON: None HISTORY: Fall, EtOH CT DLP: 1582.3 mGycm, Automated exposure control for dose reduction was used. CONTRAST: Patient injected with 0 mL of Isovue 300. CT of the brain is performed utilizing 3 mm thick sections through the posterior fossa and 3 mm thick sections through the remaining calvarium. Study is performed within 24 hours of arrival to the hospital. No abnormal hyperdensity is present to suggest an acute intracranial hemorrhage. No mass lesion is evident. No acute infarcts are evident. Ventricles and sulci are appropriate for the patient age. Paranasal sinuses and mastoid air cells within the [id number] are clear. IMPRESSIONS: 1. No acute intracranial process. Follow-up MRI can be performed as clinically indicated. CT cervical spine. COMPARISON: None CT of the cervical spine is performed in the axial plane at 2 mm thick sections. Reconstructed image s in the coronal, and sagittal plane are reviewed on the computer. No acute fractures are evident. Vertebral body alignment is normal. There is narrowing of disc height at C3-4. Milder loss of disc height is present at C5-6 C6-7 C7-T1. Vertebral body heights are preserved. No spinal canal stenosis is evident. Facet degenerative change contributing to left foraminal stenosis at C2-C3. C3-4 foraminal narrowing with uncovertebral joint hypertrophy and facet hypertrophy is present. Degenerative changes and facet hypertrophy gently into left CP 45 foraminal stenosis. IMPRESSIONS: 1. No acute osseous abnormalities cervical spine. 2. Degenerative disc change and left foraminal narrowing discussed above
[2022-10-24 04:48] VITALS: BP 138/74; PULSE 84; TEMP 98.2
--- NOTE | 2022-10-24 08:35 | XR ---
EXAMINATION TYPE: XR hand complete RT DATE OF EXAM: 10/24/2022 COMPARISON: None HISTORY: Laceration palmar aspect TECHNIQUE: 3 view right hand FINDINGS: No acute fractures are evident. Mild diffuse joint space narrowing is present. Soft tissues appear normal. No radiopaque foreign bodies are evident. Follow-up studies can be performed as clini bhargavi indicated IMPRESSION: 1. No acute osseous abnormality. 2. No radiopaque foreign bodies.
== END 2022-10-24 04:47 | disposition home or self-care (01) ==
LOC: EC 23:50
DX: S61.411A Laceration without foreign body of right hand, initial encounter (principal); E78.5 Hyperlipidemia, unspecified; Z79.82 Long term (current) use of aspirin; Z79.899 Other long term (current) drug therapy; Z88.5 Allergy status to narcotic agent; Z88.8 Allergy status to other drugs, medicaments and biological substances; Z91.013 Allergy to seafood; Z86.73 Personal history of transient ischemic attack (TIA), and cerebral infarction without residual deficits; W10.9XXA Fall (on) (from) unspecified stairs and steps, initial encounter; Y93.01 Activity, walking, marching and hiking
CPT/HCPCS: 73130; 72125; 70450; 90715; 12002; 99285; 96374; 96375 ×3; 90471; J2270; J1200; J2930; J2001

== ENCOUNTER 2023-08-11 09:05 | Emergency (ER) | payer MEDICARE ==
[2023-08-11 09:43] VITALS: TEMP 97.4
--- NOTE | 2023-08-11 09:57 | ED ---
Back Pain HPI - General Chief Complaint: Back Pain/Injury Stated Complaint: Back pain Time Seen by Provider: 08/11/23 09:35 Source: patient, EMS, RN notes reviewed Limitations: no limitations - History of Present Illness Initial Comments: This is a 72-year-old male who presents to the emergency department for back pain. States that 3 days ago he was lifting 50 pound bags of rocks and he heard something "snap" in his lower back. He has since had increasing pain to the area of the right lower back. Denies any loss of bowel/bladder control or saddle anesthesia. He has some pain in the right hip radiating down the right leg. He is taking naproxen and other [id number] medications without relief in symptoms. He states that he has had difficulty ambulating as a result of the pain. MD Complaint: back pain Onset/Timin -: days(s) - Related Data Home Medications Medication Instructions Recorded Confirmed Aspirin EC [Ecotrin] 325 mg PO DAILY 11/23/17 01/21/18 Cholecalciferol [Vitamin D3] 2,000 unit PO DAILY 11/23/17 01/21/18 Simvastatin [Zocor] 20 mg PO HS 11/23/17 01/21/18 hydroCHLOROthiazide [Hydrodiuril] 25 mg PO DAILY 11/23/17 01/21/18 lisinopriL [Zestril] 20 mg PO DAILY 11/23/17 01/21/18 Previous Rx's Medication Instructions Recorded HYDROcodone/APAP 5-325MG [Bladen 1 tab PO Q6HR PRN 3 Days #12 tab 08/11/23 5-325] Lidocaine 5% Patch [Lidoderm 5% 1 patch TOPICAL DAILY PRN #30 patch 08/11/23 Patch] methocarbamoL [Robaxin-750] 1,500 mg PO TID PRN #30 tab 08/11/23 Allergies Allergy/AdvReac Type Severity Reaction Status Date / Time meperidine [From Demerol] Allergy dizzy,swell Verified 08/11/23 09:16 ing shellfish derived [Shellfish] Allergy Swelling Verified 08/11/23 09:16 iodine Allergy Swelling Uncoded 08/11/23 09:16 Review of Systems ROS Statement: Those systems with pertinent positive or pertinent negative responses have been documented in the HPI. ROS Other: All systems not noted in ROS Statement are negative. Past Medical History Past Medical History: CVA/TIA, Hyperlipidemia Additional Past Medical History / Comment(s): TIA "years ago", hx tachycardia, History of Any Multi-Drug Resistant Organisms: None Reported Past Surgical History: Appendectomy, Cardiac Ablation Past Anesthesia/Blood Transfusion Reactions: No Reported Reaction Past Psychological History: No Psychological Hx Reported Smoking Status: Never smoker Past Alcohol Use History: Occasional Past Drug Use History: None Reported - Past Family History Mother Family Medical History: No Reported History General Exam Limitations: no limitations General appearance: alert, in distress Head exam: Present: atraumatic, normocephalic, normal inspection Respiratory exam: Present: normal lung sounds bilaterally. Absent: respiratory distress, wheezes, rales, rhonchi, stridor Cardiovascular Exam: Present: regular rate, normal rhythm, normal heart sounds. Absent: systolic murmur, diastolic murmur, rubs, gallop, clicks Back exam: Present: tenderness (Right lower back) Neurological exam: Present: alert, oriented X3, CN II-XII intact Psychiatric exam: Present: normal affect, normal mood Skin exam: Present: warm, dry, intact, normal color. Absent: rash Course Vital Signs 08/11/23 08/11/23 09:10 12:21 Temperature 97.4 F L 97.4 F L Pulse Rate 88 82 Respiratory 20 16 Rate Blood Pressure 178/110 144/90 O2 Sat by Pulse 99 98 Oximetry Medical Decision Making - Medical Decision Making This is a 72-year-old male who presents to the emergency department for back pain. Was pt. sent in by a medical professional or institution? @ -No Did you speak to anyone other than the patient for history? @ -No Did you review nursing and triage notes? @ -Yes, and I agree, it is accurate with regards to the patient's symptoms. Were old charts reviewed? @ -No Differential Diagnosis? @ -Differential Back Pain: Strain, zoster, cauda equina syndrome, epidural abscess, vertebral osteomyelitis, discitis, fracture, subluxation, disc herniation, DJD, spinal stenosis, dissection, AAA, pancreatitis, peptic ulcer disease, pyelonephritis, kidney stone, this is not meant to be an all-inclusive list. EKG interpreted by me (3pts min.)? @ -Not obtained X-rays interpreted by me (1pt min.)? @ -X-ray of the lumbar spine, sacrum/coccyx, and right hip obtained. My int erpretation identifies no acute fractures. CT interpreted by me (1pt min.)? @ -Not obtained U/S interpreted by me (1pt. min.)? @ -Not obtained What testing was considered but not performed? (CT, X-rays, U/S, labs)? Why? @ -None What meds were considered but not given? Why? @ -None Did you discuss the management of the patient with other professionals? @ -No Did you reconcile home meds? @ -No Was smoking cessation discussed for >3mins.? @ -No Was critical care preformed (if so, how long)? @ -No Were there social determinants of health that impacted care today? How? (Homeles sness, low income, unemployed, alcoholism, drug addiction, transportation, low edu. Level, literacy, decrease access to med. care, residential, rehab)? @ -No Was there de-escalation of care discussed even if they declined? (Discuss DNR or withdrawal of care, Hospice)? @ -No What co-morbidities impacted this encounter? (DM, HTN, Smoking, COPD, CAD, Cance r, CVA, Hep., AIDS, mental health diagnosis, sleep apnea, morbid obesity)? @ -Osteoarthritis Was patient admitted / discharged? @ -Discharged. X-ray of the lumbar spine, sacrum/coccyx, and right hip obtained revealing no acute process. Symptoms likely related to a muscular injury/lumbar strain. He had no red flag signs or symptoms such as loss of bowel/bladder control or saddle anesthesia. We were able to get his pain to a tolerable level in the emergency department. Prescription for Robaxin and lidocaine patches provided with dosing instructions reviewed. He has a prescription for naproxen at home that he will continue to take as well. Advised follow-up with his primary care provider. Undiagnosed new problem with uncertain prognosis? @ -None Drug Therapy requiring intensive monitoring for toxicity (Heparin, Nitro, Insulin, Cardizem)? @ -None Were any procedures done? @ -None Diagnosis/symptom? @ -Lumbar strain Acute, or Chronic, or Acute on Chronic? @ -Acute Uncomplicated (without systemic symptoms) or Complicated (systemic symptoms)? @ -Uncomplicated Side effects of treatment? @ -None Exacerbation, Progression, or Severe Exacerbation] @ -Not applicable Poses a threat to life or bodily function? @ -No Return precautions reviewed in depth, the patient is instructed to return to the emergency department with any new, worsening, or concerning symptoms. Patient verbalized understanding. This case was discussed in detail with the attending ED physician, Dr. Garibay. Presentation, findings, and treatment plan discussed in detail as well. - Radiology Data Radiology results: report reviewed, image reviewed Disposition Clinical Impression: Strain of lumbar region Disposition: HOME SELF-CARE Instructions (If sedation given, give patient instructions): Low Back Strain (ED), Acute Low Back Pain (ED) Additional Instructions: Return to the emergency department with any new, worsening, or concerning symptoms. Continue to take your naproxen. Take the Robaxin as 1 to 2 tablets up to 3-4 times daily and be aware that it may make you drowsy. You can apply the lidocaine patches daily. Follow up with your primary care provider in 1-2 days. Prescriptions: Lidocaine 5% Patch [Lidoderm 5% Patch] 1 patch TOPICAL DAILY PRN #30 patch PRN Reason: Pain HYDROcodone/APAP 5-325MG [Bladen 5-325] 1 tab PO Q6HR PRN 3 Days #12 tab PRN Reason: Pain methocarbamoL [Robaxin-750] 1,500 mg PO TID PRN #30 tab PRN Reason: Pain Is patient prescribed a controlled substance at d/c from ED?: Yes When asked, does pt state using other controlled substances?: No If prescribed controlled substance>3 days was MAPS reviewed?: Prescribed <3 Days Referrals: Todd Figueroa MD [Primary Care Provider] - 1-2 days Time of Disposition: 11:41
[2023-08-11] MEDS: HYDROmorphone 1 MG/ML 1 ML SYRINGE IVP STA (10:13)
[2023-08-11] MEDS: ORPHENADRINE 30 MG/ML 2 ML VIAL IVP STA (10:14)
[2023-08-11] MEDS: KETOROLAC 15 MG/ML 1 ML VIAL IVP STA ×2 (10:14→12:14)
[2023-08-11] MEDS: LIDOCAINE 4% PATCH TOPICAL ONE (10:15)
[2023-08-11] MEDS: DEXAMETHASONE SOD PHOSPHATE 10 MG/ML 1 ML VIAL IVP STA (10:15)
--- NOTE | 2023-08-11 11:04 | XR ---
EXAMINATION TYPE: XR lumbar spine 2 or 3V, XR sacrum coccyx DATE OF EXAM: 08/11/2023 10:50 AM CLINICAL INDICATION:Male, 72 years old with history of Pain; COMPARISON: None TECHNIQUE: XR lumbar spine 2 or 3V, XR sacrum coccyx - Frontal, lateral and coned in L5-S1 lateral vi ews of the spine. Frontal and lateral views of the sacrum and coccyx. FINDINGS: No evidence of any acute osseous pathology. No evidence of loss of vertebral body height i s seen. There is grade 1 anterolisthesis of L4 and L5 Alignment of the lumbar vertebral bodies. Mild scattered disc space narrowing. Multilevel marginal osteophyte formation throughout the visualized sp ine. There is facet joint arthropathy throughout the spine. Scattered at least mild neural foraminal stenosis. IMPRESSION: 1. No acute fracture. 2. Mild multilevel disc degeneration. 3. Grade 1 anterolisthesis of L4 and L5. 4. The sacrum and coccyx are intact.
--- NOTE | 2023-08-11 11:04 | XR ---
EXAMINATION TYPE: XR Hip Complete RT DATE OF EXAM: 08/11/2023 COMPARISON: None HISTORY: Pain TECHNIQUE: 2 view right hip FINDINGS: Femoral head articulates with the acetabulum. No acute fracture or dislocation is evident. Joint space is preserved. Some femoral head and acetabular spurring is present compatible with mild d egenerative change Follow-up can be performed as clinically indicated. IMPRESSION: 1. Mild degenerative changes right hip
[2023-08-11] MEDS: HYDROmorphone 0.5 MG/0.5 ML SYRINGE IVP STA (12:13)
[2023-08-11 12:36] VITALS: BP 144/90; PULSE 82; RESP 16
== END 2023-08-11 12:23 | disposition home or self-care (01) ==
LOC: EC 09:05
DX: S39.012A Strain of muscle, fascia and tendon of lower back, initial encounter (principal); M16.11 Unilateral primary osteoarthritis, right hip; Z88.5 Allergy status to narcotic agent; Z91.013 Allergy to seafood; Z91.041 Radiographic dye allergy status; X50.0XXA Overexertion from strenuous movement or load, initial encounter
CPT/HCPCS: 72100; 72220; 73502; 99284; 96374; 96375 ×3; 96376 ×2; J1100; J2360; J1170 ×2; J1885